=== PATIENT | female | born 1965 | race African-American/Black ===

== ENCOUNTER 2019-03-22 00:27 | Emergency (ER) | payer OTHER ==
[~2019-03-22] VITALS: Ht 162.6 cm; Wt 74.8 kg
[2019-03-22 00:34] VITALS: BP 132/79
[2019-03-22] MEDS ORDERED: LATUDA60 MG PO (00:38)
[2019-03-22] MEDS ORDERED: NEURONTIN 300300 M1 PO (00:38)
[2019-03-22] MEDS ORDERED: NAPROXEN375 MG PO (01:28)
[2019-03-22] MEDS ORDERED: CRUTCHES MISCELL (01:28)
[2019-03-22] MEDS ORDERED: TRAMADOL 50 MG50 MG PO (01:28)
== END 2019-03-22 01:41 | disposition home or self-care (01) ==
LOC: ER 00:27
DX: S92.355A Nondisplaced fracture of fifth metatarsal bone, left foot, initial encounter for closed fracture (principal); S93.602A Unspecified sprain of left foot, initial encounter; X50.1XXA Overexertion from prolonged static or awkward postures, initial encounter; Y93.89 Activity, other specified; Y92.89 Other specified places as the place of occurrence of the external cause; Y99.8 Other external cause status